=== PATIENT | male | born 1985 | race Caucasian/White ===

== ENCOUNTER 2022-02-03 08:53 | Emergency (ER) | payer BC, SELFPAY ==
[~2022-02-03] VITALS: Ht 190.5 cm; Wt 109.1 kg
[2022-02-03 10:58] VITALS: BP 136/81
== END 2022-02-03 11:01 | disposition home or self-care (01) ==
LOC: M ED 08:53
DX: S90.32XA Contusion of left foot, initial encounter (principal); W20.8XXA Other cause of strike by thrown, projected or falling object, initial encounter; Y92.099 Unspecified place in other non-institutional residence as the place of occurrence of the external cause; Y93.9 Activity, unspecified; Y99.9 Unspecified external cause status

== ENCOUNTER 2022-03-13 11:42 | Emergency (ER) | payer SELFPAY ==
[2022-03-13] MEDS ORDERED: SUCCINYLCHOLINE INJ 200 MG/10 ML VIAL (J0330) ONE (11:43)
[2022-03-13] MEDS ORDERED: ETOMIDATE INJ 20MG/10ML VIAL ONE (11:43)
[2022-03-13] MEDS ORDERED: VECURONIUM BROMIDE 10MG VIAL ONE (11:43)
[2022-03-13] MEDS ORDERED: MIDAZOLAM INJ 2MG/2ML VIAL (J2250 PER 1MG) As Ordered ONE ×2 (11:47→11:55)
[2022-03-13] MEDS ORDERED: PROPOFOL 1,000 MG/100 ML VIAL As Ordered ONE (11:56)
[2022-03-13] MEDS ORDERED: MIDAZOLAM INJ 2MG/2ML VIAL (J2250 PER 1MG) IV STA (11:59)
[2022-03-13] MEDS ORDERED: ceFAZolin SOD 2 GM in IV 1 EA IV ONE (12:00)
[2022-03-13] MEDS ORDERED: BOOSTRIX/ADACEL VACCINE (DIPHTH/PERTUSS/ACELL/TETANUS) 0.5ML SYR IM.IMMUN ONE (12:00)
[2022-03-13] MEDS ORDERED: REFRIGERATOR IV KEYS XX PRN (12:00)
[2022-03-13] MEDS ORDERED: MIDAZOLAM HCL 100 MG in D5W 80 ML IV SCH (12:00)
[2022-03-13] MEDS ORDERED: VECURONIUM BROMIDE 10MG VIAL IV STA (12:24)
[2022-03-13 12:27] VITALS: BP 149/96
== END 2022-03-13 12:31 | disposition short-term general hospital (02) ==
LOC: EDBD 11:42 → M ED 11:42
DX: S09.90XA Unspecified injury of head, initial encounter (principal); S72.321A Displaced transverse fracture of shaft of right femur, initial encounter for closed fracture; S22.31XA Fracture of one rib, right side, initial encounter for closed fracture; V28.0XXA Motorcycle driver injured in noncollision transport accident in nontraffic accident, initial encounter
CPT/HCPCS: 31500; 71045; 72170; 73552; 86850; 86900; 86901; 86920; 90471; 90715; 93041; 94760; 96365; 96368; 96375; 99291; J0330; J0690; J2250; P9016

== ENCOUNTER 2023-01-07 13:08 | Emergency (ER) | payer BC, MEDICAID, SELFPAY ==
[~2023-01-07] VITALS: Ht 190.5 cm; Wt 122.8 kg
[2023-01-07 13:10] VITALS: BP 162/88
[2023-01-07] MEDS ORDERED: PROP20TA72 (13:19)
[2023-01-07] MEDS ORDERED: LEXA1TAB2 (13:19)
[2023-01-07] MEDS ORDERED: TRAZ-189 (13:19)
[2023-01-07] MEDS ORDERED: RISP0.5T18 (13:19)
[2023-01-07] MEDS ORDERED: GABA600T4 (13:19)
== END 2023-01-07 15:19 | disposition home or self-care (01) ==
LOC: M ED 13:08
DX: F32.9 Major depressive disorder, single episode, unspecified (principal); I10 Essential (primary) hypertension; F17.200 Nicotine dependence, unspecified, uncomplicated; F12.10 Cannabis abuse, uncomplicated

== ENCOUNTER 2023-01-17 11:54 | Emergency (ER) | payer MEDICAID ==
[~2023-01-17] VITALS: Ht 190.5 cm; Wt 122.3 kg
[~2023-01-17 11:54] MED LIST: GABA600T4; LEXA1TAB2; PROP20TA72; RISP0.5T18; TRAZ-189
[2023-01-17] MEDS ORDERED: NS 500 ML IV ONE (13:05)
[2023-01-17] MEDS ORDERED: ONDANSETRON 4MG 2ML VIAL IV ONE (13:05)
[2023-01-17 13:10] VITALS: BP 150/79
[2023-01-17] MEDS ORDERED: cloNIDine 0.1MG TABLET PO ONE (13:10)
[2023-01-17 13:50] LABS: BASO % 0.4 % (0.0-1.0); EOS % 0.2 % (0.0-3.0); HEMATOCRIT 45.9 % (42.0-52.0); HEMOGLOBIN 15.3 g/dl (13.5-17.5); LYMPH # 1.2 10^3/uL (1.5-5.0); LYMPH % 13.5 % (24.0-44.0); MEAN CORPUSCULAR HEMOGLOBIN 33.8 pg (27.0-33.0); MEAN CORPUSCULAR HGB CONC 33.3 g/dl (32.0-36.5); MEAN CORPUSCULAR VOLUME 101.3 fl (80.0-96.0); MONO # 0.5 10^3/uL (0.0-0.8); MONO % 5.4 % (2.0-8.0); NEUTROPHILS # 7.3 10^3/uL (1.5-8.5); NEUTROPHILS % 80.3 % (36.0-66.0); PLATELET COUNT, AUTOMATED 346 10^3/uL (150-450); RED BLOOD COUNT 4.53 10^6/uL (4.30-6.10); WHITE BLOOD COUNT 9.1 10^3/uL (4.0-10.0)
[2023-01-17 14:00] VITALS: BP 150/92
[2023-01-17 14:14] LABS: BLOOD UREA NITROGEN 10 MG/DL (9-23); CALCIUM LEVEL 9.3 MG/DL (8.5-10.1); CARBON DIOXIDE LEVEL 27 MMOL/L (20-31); CHLORIDE LEVEL 103 MMOL/L (98-107); GLOMERULAR FILTRATION RATE > 60.0 (>60); GLUCOSE, FASTING 92 MG/DL (60-100); POTASSIUM SERUM 4.5 MMOL/L (3.5-5.1); SODIUM LEVEL 135 MMOL/L (136-145)
[2023-01-17 14:17] LABS: THYROID STIMULATING HORMONE 1.396 uIU/ML (0.55-4.78)
[2023-01-17] MEDS ORDERED: ONDA4TAB6 PO (14:47)
== END 2023-01-17 15:05 | disposition home or self-care (01) ==
LOC: M ED 11:54
DX: F11.13 Opioid abuse with withdrawal (principal); I10 Essential (primary) hypertension; F41.9 Anxiety disorder, unspecified; F12.10 Cannabis abuse, uncomplicated; Z79.899 Other long term (current) drug therapy
CPT/HCPCS: 80048; 84439; 84443; 85025; 93005; 93041; 94760; 96360; 96374; 99284; J2405

== ENCOUNTER → 2023-01-18 | Outpatient (CLI) | payer MEDICAID ==
[~2023-01-18] MED LIST changes: +ONDA4TAB6 PO
== END ==
LOC: M OUTALCOH 07:59
PROVIDERS: ATTEND Psychiatry & Neurology Psychiatry
DX: Z13.39 Encounter for screening examination for other mental health and behavioral disorders (principal)